=== PATIENT | male | born 1945 | race Caucasian/White ===

== ENCOUNTER 2019-06-08 20:33 | Outpatient (REF) | payer MEDICARE, SELFPAY ==
[2019-06-08 20:46] LABS: HCT 42.6 % (40.0-50.0); HGB 13.5 g/dL (13.5-17.5); Mean Corp. HGB Concentration 31.7 g/dL (32.0-36.0); Mean Corpuscular Hemoglobin 30.5 pg (27.0-33.0); Mean Corpuscular Volume 96.4 fL (80-95); Mean Platelet Volume 11.4 fL (8.0-11.0); Platelet Count 216 x1000/uL (130-400); RBC 4.42 m/cumm (4.50-6.00); RBC Distribution Width 14.4 % (11.8-14.1); White Blood Cell Count 4.44 k/cumm (4.4-10.8)
[2019-06-08 21:31] LABS: Hemoglobin A1C 5.8 % (4.5-6.2)
[2019-06-08 21:37] LABS: ALT 89 U/L (16-63); AST 38 U/L (15-37); Albumin 3.4 g/dL (3.4-5.0); Alkaline Phosphatase 77 U/L (46-116); Anion Gap 10.1 mmol/L (3-11); BUN 24 mg/dL (7-18); Bilirubin, Total 0.7 mg/dL (0.2-1.0); CO2 25.9 mmol/L (21.0-32.0); CREATININE 0.84 mg/dL (0.70-1.30); Chloride 106 mmol/L (98-107); Glucose 102 mg/dL (74-106); Potassium 4.4 mmol/L (3.5-5.1); Sodium 142 mmol/L (136-145); TSH (W/Ref FT4) 0.59 uIU/mL (0.36-3.74); Vitamin B12 348 pg/mL (193-986)
== END 2019-06-08 20:53 ==
LOC: NCHCN 20:33
PROVIDERS: PCP Family Medicine; Visit Provider Family Medicine
DX: R60.0 Localized edema (principal); R53.83 Other fatigue; R79.89 Other specified abnormal findings of blood chemistry; G60.9 Hereditary and idiopathic neuropathy, unspecified; R73.03 Prediabetes
CPT/HCPCS: 80053; 85027; 82607; 83036; 84443

== ENCOUNTER 2019-11-13 14:51 | Outpatient (REF) | payer MEDICARE, SELFPAY ==
[2019-11-13 21:19] LABS: ALT 57 U/L (16-63); AST 40 U/L (15-37); Alkaline Phosphatase 102 U/L (46-116); Anion Gap 3.4 mmol/L (3-11); BUN 29 mg/dL (7-18); Bilirubin, Total 0.9 mg/dL (0.2-1.0); CO2 31.6 mmol/L (21.0-32.0); Chloride 105 mmol/L (98-107); Glucose 114 mg/dL (74-106); NT-proBNP 9996 pg/mL (<300); Potassium 4.1 mmol/L (3.5-5.1); Sodium 140 mmol/L (136-145); Total Protein 5.6 g/dL (6.4-8.2)
[2019-11-13 22:04] LABS: Calculated LDL 129 mg/dL (<100); Cholesterol 180 mg/dL (<200); HDL Cholesterol 29 mg/dL (40-60); Triglyceride 112 mg/dL (<150); Vitamin B12 682 pg/mL (193-986)
== END 2019-11-13 15:11 ==
LOC: NCHCN 14:51
PROVIDERS: PCP Family Medicine; Visit Provider Family Medicine
DX: I50.9 Heart failure, unspecified (principal); R60.0 Localized edema; R06.09 Other forms of dyspnea; R74.8 Abnormal levels of other serum enzymes; E53.8 Deficiency of other specified B group vitamins; I25.10 Atherosclerotic heart disease of native coronary artery without angina pectoris
CPT/HCPCS: 80053; 80061; 82607; 83880

== ENCOUNTER 2019-11-20 10:33 | Outpatient (REF) | payer MEDICARE, SELFPAY ==
[2019-11-20 21:28] LABS: Anion Gap 3.6 mmol/L (3-11); BUN 31 mg/dL (7-18); CO2 34.4 mmol/L (21.0-32.0); CREATININE 1.12 mg/dL (0.70-1.30); Chloride 103 mmol/L (98-107); Glucose 100 mg/dL (74-106); Sodium 141 mmol/L (136-145)
== END 2019-11-20 10:53 ==
LOC: NCHCN 10:33
PROVIDERS: PCP Family Medicine; Visit Provider Family Medicine
DX: I25.10 Atherosclerotic heart disease of native coronary artery without angina pectoris (principal)
CPT/HCPCS: 80048

== ENCOUNTER 2020-11-27 10:14 | Outpatient (REF) | payer MEDICARE, SELFPAY ==
[2020-11-27 13:53] LABS: Hemoglobin A1C 6.1 % (<5.7)
[2020-11-27 14:14] LABS: ALT 29 U/L (16-63); AST 19 U/L (15-37); Albumin 4.2 g/dL (3.4-5.0); Alkaline Phosphatase 102 U/L (46-116); Anion Gap 8.2 mmol/L (3-11); BUN 41 mg/dL (7-18); Bilirubin, Total 0.6 mg/dL (0.2-1.0); CO2 27.8 mmol/L (21.0-32.0); CREATININE 1.1 mg/dL (0.70-1.30); Calcium 9.7 mg/dL (8.5-10.1); Chloride 104 mmol/L (98-107); Glucose 111 mg/dL (74-106); Potassium 5.6 mmol/L (3.5-5.1); Sodium 140 mmol/L (136-145); Total Protein 7.8 g/dL (6.4-8.2); Vitamin B12 680 pg/mL (193-986)
== END 2020-11-27 10:15 | disposition home or self-care (01) ==
LOC: NCHCN 10:14
PROVIDERS: PCP Family Medicine; Visit Provider Family Medicine
DX: E53.8 Deficiency of other specified B group vitamins (principal); R73.03 Prediabetes; R74.8 Abnormal levels of other serum enzymes; G60.9 Hereditary and idiopathic neuropathy, unspecified
CPT/HCPCS: 80053; 82607; 83036

== ENCOUNTER 2021-11-20 16:26 | Outpatient (REF) | payer MEDICARE, SELFPAY ==
[2021-11-20 15:07] LABS: ALT 20 U/L (16-63); AST 20 U/L (15-37); Albumin 4.3 g/dL (3.4-5.0); Alkaline Phosphatase 99 U/L (46-116); Anion Gap 9.1 mmol/L (3-11); BUN 24 mg/dL (7-18); Bilirubin, Total 0.6 mg/dL (0.2-1.0); CO2 28.9 mmol/L (21.0-32.0); Calcium 9.4 mg/dL (8.5-10.1); Calculated LDL 80 mg/dL (<100); Chloride 105 mmol/L (98-107); Cholesterol 147 mg/dL (<200); Glucose 91 mg/dL (74-106); HDL Cholesterol 46 mg/dL (40-60); Potassium 4.9 mmol/L (3.5-5.1); Sodium 143 mmol/L (136-145); Total Protein 7.7 g/dL (6.4-8.2); Triglyceride 106 mg/dL (<150); Vitamin B12 553 pg/mL (193-986)
== END 2021-11-20 16:27 | disposition home or self-care (01) ==
LOC: NCHCN 16:26
PROVIDERS: PCP Family Medicine; Visit Provider Family Medicine
DX: I10 Essential (primary) hypertension (principal); E78.5 Hyperlipidemia, unspecified; E53.8 Deficiency of other specified B group vitamins; I50.9 Heart failure, unspecified; R73.03 Prediabetes
CPT/HCPCS: 80053; 80061; 82607; 83036

== ENCOUNTER 2022-06-10 14:55 | Outpatient (REF) | payer MEDICARE, SELFPAY ==
[2022-06-10 15:08] LABS: Anion Gap 6.3 mmol/L (3-11); BUN 22 mg/dL (7-18); CO2 28.7 mmol/L (21.0-32.0); CREATININE 1.1 mg/dL (0.70-1.30); Calcium 9.3 mg/dL (8.5-10.1); Chloride 105 mmol/L (98-107); Estimated GFR 70.44 (mL/min/1.73m2); Glucose 107 mg/dL (74-106); Potassium 4.2 mmol/L (3.5-5.1); Sodium 140 mmol/L (136-145)
== END 2022-06-10 14:56 | disposition home or self-care (01) ==
LOC: NCHCN 14:55
PROVIDERS: PCP Family Medicine; Visit Provider Family Medicine
DX: I50.9 Heart failure, unspecified (principal)
CPT/HCPCS: 80048

== ENCOUNTER 2022-12-02 10:25 | Outpatient (REF) | payer MEDICARE, SELFPAY ==
[2022-12-02 15:30] LABS: ALT 31 U/L (16-63); AST 27 U/L (15-37); Albumin 3.9 g/dL (3.4-5.0); Alkaline Phosphatase 78 U/L (46-116); Anion Gap 8.3 mmol/L (3-11); BUN 22 mg/dL (7-18); Bilirubin, Total 0.5 mg/dL (0.2-1.0); CO2 27.7 mmol/L (21.0-32.0); Calcium 9.5 mg/dL (8.5-10.1); Calculated LDL 75 mg/dL (<100); Chloride 102 mmol/L (98-107); Cholesterol 148 mg/dL (<200); Estimated GFR 78.98 (mL/min/1.73m2); Glucose 113 mg/dL (74-106); HDL Cholesterol 36 mg/dL (40-60); Potassium 4.4 mmol/L (3.5-5.1); Sodium 138 mmol/L (136-145); Total Protein 8.1 g/dL (6.4-8.2); Triglyceride 187 mg/dL (<150); Vitamin B12 397 pg/mL (193-986)
== END 2022-12-02 10:26 | disposition home or self-care (01) ==
LOC: NCHCN 10:25
PROVIDERS: PCP Family Medicine; Visit Provider Family Medicine
DX: Z00.00 Encounter for general adult medical examination without abnormal findings (principal); E53.8 Deficiency of other specified B group vitamins; R74.8 Abnormal levels of other serum enzymes; R73.03 Prediabetes; E78.5 Hyperlipidemia, unspecified; I25.10 Atherosclerotic heart disease of native coronary artery without angina pectoris
CPT/HCPCS: 80053; 80061; 82607; 83036

== ENCOUNTER 2023-05-31 15:48 | Outpatient (REF) | payer MEDICARE, SELFPAY ==
[2023-05-31 22:39] LABS: PSA, Diagnostic 1.6 ng/mL (<=6.5)
== END 2023-05-31 15:49 | disposition home or self-care (01) ==
LOC: LBN 15:48
PROVIDERS: PCP Family Medicine; Visit Provider Urology
DX: C61 Malignant neoplasm of prostate (principal)
CPT/HCPCS: 84153

== ENCOUNTER 2023-08-22 15:25 | Outpatient (REF) | payer MEDICARE, SELFPAY ==
[2023-08-23 10:09] LABS: PSA, Diagnostic 28.3 ng/mL (<=6.5)
== END 2023-08-22 15:26 | disposition home or self-care (01) ==
LOC: LBN 15:25
PROVIDERS: PCP Family Medicine; Visit Provider Urology
DX: C61 Malignant neoplasm of prostate (principal)
CPT/HCPCS: 84153

== ENCOUNTER 2023-11-30 11:41 | Outpatient (REF) | payer MEDICARE, SELFPAY ==
[2023-11-30 16:50] LABS: ALT 23 U/L (16-63); AST 11 U/L (15-37); Albumin 3.7 g/dL (3.4-5.0); Alkaline Phosphatase 391 U/L (46-116); Anion Gap 7.8 mmol/L (3-11); BUN 23 mg/dL (7-18); Bilirubin, Total 0.6 mg/dL (0.2-1.0); CO2 30.2 mmol/L (21.0-32.0); Calcium 9.5 mg/dL (8.5-10.1); Calculated LDL 63 mg/dL (<100); Chloride 104 mmol/L (98-107); Cholesterol 133 mg/dL (<200); Estimated GFR 78.49 (mL/min/1.73m2); Glucose 110 mg/dL (74-106); HDL Cholesterol 35 mg/dL (40-60); Potassium 4.4 mmol/L (3.5-5.1); Sodium 142 mmol/L (136-145); Total Protein 7.6 g/dL (6.4-8.2); Triglyceride 175 mg/dL (<150)
== END 2023-11-30 11:42 | disposition home or self-care (01) ==
LOC: NCHCN 11:41
PROVIDERS: PCP Family Medicine; Visit Provider Family Medicine
DX: I50.22 Chronic systolic (congestive) heart failure (principal); R73.03 Prediabetes; E78.5 Hyperlipidemia, unspecified
CPT/HCPCS: 80053; 80061; 83036

== ENCOUNTER 2024-08-24 13:52 | Outpatient (REF) | payer MEDICARE, SELFPAY ==
[2024-08-24 14:57] LABS: Anion Gap 8.3 mmol/L (3-11); BUN 34 mg/dL (7-18); CO2 28.7 mmol/L (21.0-32.0); CREATININE 1.3 mg/dL (0.70-1.30); Calcium 9.5 mg/dL (8.5-10.1); Chloride 108 mmol/L (98-107); Estimated GFR 56.93 (mL/min/1.73m2); Glucose 112 mg/dL (74-106); Potassium 3.8 mmol/L (3.5-5.1); Sodium 145 mmol/L (136-145)
== END 2024-08-24 13:53 | disposition home or self-care (01) ==
LOC: NCHCN 13:52
PROVIDERS: PCP Family Medicine; Visit Provider Family Medicine
DX: R60.9 Edema, unspecified (principal)
CPT/HCPCS: 80048

== ENCOUNTER 2024-09-05 08:05 | Outpatient (REF) | payer MEDICARE, SELFPAY ==
[2024-09-05 14:45] LABS: Anion Gap 8.2 mmol/L (3-11); BUN 34 mg/dL (7-18); CO2 33.8 mmol/L (21.0-32.0); CREATININE 1.3 mg/dL (0.70-1.30); Calcium 9.6 mg/dL (8.5-10.1); Chloride 104 mmol/L (98-107); Estimated GFR 56.93 (mL/min/1.73m2); Glucose 100 mg/dL (74-106); Potassium 3.4 mmol/L (3.5-5.1); Sodium 146 mmol/L (136-145)
== END 2024-09-05 08:06 | disposition home or self-care (01) ==
LOC: NCHCN 08:05
PROVIDERS: PCP Family Medicine; Visit Provider Family Medicine
DX: R60.9 Edema, unspecified (principal)
CPT/HCPCS: 80048

== ENCOUNTER 2024-09-18 13:46 | Outpatient (REF) | payer MEDICARE, SELFPAY ==
[2024-09-18 16:00] LABS: Anion Gap 7.2 mmol/L (3-11); BUN 33 mg/dL (7-18); CO2 31.8 mmol/L (21.0-32.0); CREATININE 1.3 mg/dL (0.70-1.30); Calcium 9.8 mg/dL (8.5-10.1); Chloride 106 mmol/L (98-107); Estimated GFR 56.93 (mL/min/1.73m2); Glucose 135 mg/dL (74-106); NT-proBNP 441 pg/mL (<300); Potassium 4.4 mmol/L (3.5-5.1); Sodium 145 mmol/L (136-145)
== END 2024-09-18 13:47 | disposition home or self-care (01) ==
LOC: NCHCN 13:46
PROVIDERS: PCP Family Medicine; Visit Provider Family Medicine
DX: I50.9 Heart failure, unspecified (principal); R60.9 Edema, unspecified
CPT/HCPCS: 80048; 83880

== ENCOUNTER 2024-10-19 13:39 | Outpatient (REF) | payer MEDICARE, SELFPAY ==
[2024-10-19 21:08] LABS: Anion Gap 9.2 mmol/L (3-11); BUN 36 mg/dL (7-18); CO2 25.8 mmol/L (21.0-32.0); CREATININE 1.2 mg/dL (0.70-1.30); Calcium 9.4 mg/dL (8.5-10.1); Chloride 105 mmol/L (98-107); Estimated GFR 62.67 (mL/min/1.73m2); Glucose 128 mg/dL (74-106); Potassium 4.7 mmol/L (3.5-5.1); Sodium 140 mmol/L (136-145)
== END 2024-10-19 13:40 | disposition home or self-care (01) ==
LOC: NCHCN 13:39
PROVIDERS: PCP Family Medicine; Visit Provider Family Medicine
DX: I50.9 Heart failure, unspecified (principal)
CPT/HCPCS: 80048

== ENCOUNTER 2024-12-19 19:21 | Outpatient (REF) | payer MEDICARE, SELFPAY ==
[2024-12-19 15:17] LABS: Hemoglobin A1C 5.5 % (<5.7)
[2024-12-19 15:20] LABS: ALT 38 U/L (16-63); AST 23 U/L (15-37); Albumin 4.0 g/dL (3.4-5.0); Alkaline Phosphatase 54 U/L (46-116); Anion Gap 3.3 mmol/L (3-11); BUN 13 mg/dL (7-18); Bilirubin, Total 0.9 mg/dL (0.2-1.0); CO2 31.7 mmol/L (21.0-32.0); Calcium 9.4 mg/dL (8.5-10.1); Calculated LDL 74 mg/dL (<100); Chloride 109 mmol/L (98-107); Cholesterol 128 mg/dL (<200); Estimated GFR 77.52 (mL/min/1.73m2); Glucose 112 mg/dL (74-106); HDL Cholesterol 36 mg/dL (>or=40); Potassium 4.7 mmol/L (3.5-5.1); Sodium 144 mmol/L (136-145); Total Protein 6.4 g/dL (6.4-8.2); Triglyceride 90 mg/dL (<150)
== END 2024-12-19 19:22 | disposition home or self-care (01) ==
LOC: NCHCN 19:21
PROVIDERS: PCP Family Medicine; Visit Provider Family Medicine
DX: E78.49 Other hyperlipidemia (principal); R73.03 Prediabetes
CPT/HCPCS: 80053; 80061; 83036

== ENCOUNTER 2025-06-11 10:04 | Outpatient (REF) | payer MEDICARE, SELFPAY ==
[2025-06-11 14:38] LABS: Anion Gap 9.6 mmol/L (3-11); BUN 32 mg/dL (9-23); CO2 27.4 mmol/L (20.0-31.0); Calcium 9.5 mg/dL (8.3-10.6); Chloride 102 mmol/L (98-107); Glucose 103 mg/dL (74-106); Potassium 4.3 mmol/L (3.5-5.1); Sodium 139 mmol/L (136-145)
[2025-06-11 14:40] LABS: Magnesium 2.2 mg/dL (1.6-2.6)
== END 2025-06-11 10:05 | disposition home or self-care (01) ==
LOC: NCHCN 10:04
PROVIDERS: PCP Family Medicine; Visit Provider Family Medicine
DX: I10 Essential (primary) hypertension (principal)
CPT/HCPCS: 80048; 83735